=== PATIENT | male | born 1965 | race Caucasian/White ===

== ENCOUNTER 2019-05-21 19:22 | Emergency (ER) | payer OTHER ==
[~2019-05-21] VITALS: Ht 172.7 cm; Wt 81.7 kg
[2019-05-21 20:12] LABS: ABSOLUTE BASOPHILS 0.1 thou/uL (0.0-0.2); ABSOLUTE EOSINOPHILS 0.2 thou/uL (0.0-0.7); ABSOLUTE LYMPHOCYTES 2.3 thou/uL (0.8-5.3); ABSOLUTE MONOCYTES 0.7 thou/uL (0.0-1.2); ABSOLUTE NEUTROPHILS 4.7 thou/uL (1.6-8.1); BASOPHILS 0.9 %; EOSINOPHILS 2.1 %; HEMATOCRIT 45.8 % (42.0-52.0); HEMOGLOBIN 15.7 gm/dL (14.0-18.0); LYMPHOCYTES 29.2 %; MCH 31.5 pg (26.0-34.0); MCHC 34.3 g/dL (28.0-37.0); MCV 91.8 fL (80.0-100.0); MONOCYTES 8.6 %; NUCLEATED RBCS 0 /100WBC; PLATELET COUNT* 223 thou/uL (150-400); POLYS 59.2 %; RBC 4.98 mil/uL (4.50-6.00); RDW-CV 13.6 % (10.5-14.5); WBC 7.9 thou/uL (4.0-11.0)
[2019-05-21 20:19] LABS: CALCIUM 9.7 mg/dL (8.5-10.1); CREATININE 1.4 mg/dL (0.6-1.3); POTASSIUM 3.6 mmol/L (3.5-5.1)
[2019-05-21 20:30] LABS: ALBUMIN 4.1 g/dL (3.4-5.0); TOTAL BILIRUBIN 0.4 mg/dL (<0.1-1.0); TOTAL PROTEIN 8.2 g/dL (6.4-8.2)
[2019-05-21] MEDS ORDERED: LYRICA 50 MG50 MG PO (21:13)
[2019-05-21 22:36] VITALS: BP 127/93
[2019-05-21 22:49] LABS: URINE BILIRUBIN NEGATIVE (Negative); URINE BLOOD TRACE (Negative); URINE CLARITY CLEAR; URINE COLOR YELLOW; URINE GLUCOSE-RANDOM NEGATIVE (Negative); URINE KETONES NEGATIVE (Negative); URINE LEUKOCYTES-REFLEX NEGATIVE (Negative); URINE NITRITE-REFLEX NEGATIVE (Negative); URINE PROTEIN NEGATIVE (Negative); URINE SPECIFIC GRAVITY >= 1.030 (1.005-1.030); URINE UROBILINOGEN 0.2 E.U./dl (0.2-1.0)
--- NOTE | 2019-05-22 14:06 | EKG ---
[place] [address] ELECTROCARDIOGRAM REPORT Name: JAMESON RODRIGUEZ [id number] Admission: 05/21/19 Attend Phys: Discharge: 05/21/19 Date of : 65 Report #: [id number] THIS REPORT FOR: //name// [facility] ED Test Date: 2019-05-21 Test Time: 19:27:50 Pat Name: JAMESON RODRIGUEZ Department: Room: Gender: M Healthcare Marketer: [place] : 1965 Requested By: Lori Sharma Order Number: [id number] Reading MD: Kyaw Patterson Measurements Intervals [place] Rate: 96 P: 55 GA: 126 QRS: -59 QRSD: 157 T: 8 QT: 396 QTc: 501 Interpretive Statements Sinus rhythm RBBB and LAFB No previous ECG available for comparison Electronically Signed On 05-22-2019 14:06:25 LOSS PREVENTION SPECIALIST by Kyaw Patterson [email or web address] <ELECTRONICALLY SIGNED> By: Kyaw Patterson MD, [facility] 05/22/19 1406 1927 26 Kyaw Patterson MD, FACC /EPI
== END 2019-05-21 22:37 | disposition home or self-care (01) ==
LOC: M.ERS 19:22
PROVIDERS: Emergency Medicine
DX: R07.89 Other chest pain (principal); I10 Essential (primary) hypertension; F32.9 Major depressive disorder, single episode, unspecified; F41.9 Anxiety disorder, unspecified; Z91.018 Allergy to other foods; Z91.048 Other nonmedicinal substance allergy status

== ENCOUNTER 2019-05-24 00:09 | Emergency (ER) | payer OTHER ==
[~2019-05-24] VITALS: Ht 172.7 cm; Wt 81.7 kg
[~2019-05-24 00:09] MED LIST: LYRICA 50 MG50 MG PO
[2019-05-24 00:40] LABS: ABSOLUTE EOSINOPHILS 0.1 thou/uL (0.0-0.7); ABSOLUTE LYMPHOCYTES 2.6 thou/uL (0.8-5.3); ABSOLUTE MONOCYTES 0.7 thou/uL (0.0-1.2); ABSOLUTE NEUTROPHILS 3.3 thou/uL (1.6-8.1); BASOPHILS 0.6 %; EOSINOPHILS 2.1 %; HEMATOCRIT 42.9 % (42.0-52.0); HEMOGLOBIN 15.1 gm/dL (14.0-18.0); LYMPHOCYTES 38.7 %; MCHC 35.2 g/dL (28.0-37.0); MCV 91.1 fL (80.0-100.0); MONOCYTES 9.6 %; MPV 10.2 fl. (7.2-11.1); NUCLEATED RBCS 0 /100WBC; PLATELET COUNT* 188 thou/uL (150-400); RDW-CV 13.6 % (10.5-14.5); WBC 6.8 thou/uL (4.0-11.0)
[2019-05-24 00:46] LABS: CALCIUM 9.3 mg/dL (8.5-10.1); CREATININE 1.3 mg/dL (0.6-1.3); POTASSIUM 3.4 mmol/L (3.5-5.1)
[2019-05-24 00:54] LABS: PROTIME 10.5 Seconds (9.20-11.50)
[2019-05-24 01:01] LABS: TOTAL BILIRUBIN 0.5 mg/dL (<0.1-1.0); TOTAL PROTEIN 7.8 g/dL (6.4-8.2)
[2019-05-24 03:40] VITALS: BP 128/92
--- NOTE | 2019-05-25 12:49 | EKG ---
[place] [address] ELECTROCARDIOGRAM REPORT Name: JAMESON RODRIGUEZ [facility] [id number] Admission: 05/24/19 Attend Phys: Discharge: 05/24/19 Date of : 65 Report #: [id number] THIS REPORT FOR: //name// [facility] ED Test Date: 2019-05-24 Test Time: 00:17:06 Pat Name: JAMESON RODRIGUEZ Department: Room: Gender: M Software Sales Manager: : 1965 Requested By: Lori Sharma Order Number: [id number] MD: Kyaw Patterson Measurements Intervals [place] Rate: 94 P: 44 CT: 133 QRS: -25 QRSD: 152 T: 30 QT: 393 QTc: 492 Interpretive Statements Sinus rhythm Right bundle branch block Compared to ECG 05/21/2019 19:27:50 no change Electronically Signed On 05-25-2019 12:49:23 DONOR SERVICES MANAGER by Kyaw Patterson [email or web address] <ELECTRONICALLY SIGNED> By: Kyaw Patterson MD, [facility] 05/25/19 1249 0017 0017 Kyaw Patterson MD, FACC /EPI
== END 2019-05-24 03:40 | disposition home or self-care (01) ==
LOC: M.ERS 00:09
PROVIDERS: Emergency Medicine
DX: R07.89 Other chest pain (principal); I10 Essential (primary) hypertension; F41.9 Anxiety disorder, unspecified; F32.9 Major depressive disorder, single episode, unspecified; Z88.8 Allergy status to other drugs, medicaments and biological substances; Z91.018 Allergy to other foods

== ENCOUNTER 2019-05-29 17:15 | Emergency (ER) | payer OTHER ==
[~2019-05-29] VITALS: Ht 172.7 cm; Wt 81.7 kg
[2019-05-29] MEDS ORDERED: PROTONIX40 M4 PO (17:28)
[2019-05-29] MEDS ORDERED: INDAPAMIDE2.5 MG PO (17:28)
[2019-05-29] MEDS ORDERED: LIPITOR 20 MG T20 M1 PO (17:28)
[2019-05-29] MEDS ORDERED: DICYCLOMINE HCL20 MG PO (17:28)
[2019-05-29] MEDS ORDERED: BUPROPION XL150 MG PO (17:29)
[2019-05-29] MEDS ORDERED: K-DUR 20 MEQ T20 MEQ PO (17:29)
[2019-05-29] MEDS ORDERED: CELECOXIB100 MG PO (17:29)
[2019-05-29] MEDS ORDERED: NORCO 5-325 TA1 EAC1 PO (19:43)
[2019-05-29 19:47] VITALS: BP 129/84
--- NOTE | 2019-05-30 13:18 | EKG ---
[place] [address] ELECTROCARDIOGRAM REPORT Name: JAMESON RODRIGUEZ Room: [facility]#: [id number] Admission: 05/29/19 Attend Phys: Discharge: 05/29/19 Date of : 65 Report #: [id number] THIS REPORT FOR: //name// [facility] ED Test Date: 2019-05-29 Test Time: 17:22:48 Pat Name: JAMESON RODRIGUEZ Department: Room: Gender: M Cannon Crewmember: : 1965 Requested By: Aleksandra Martin Order Number: [id number] MD: Kyaw Patterson Measurements Intervals [place] Rate: 90 P: 41 NM: 142 QRS: 79 QRSD: 149 T: 33 QT: 398 QTc: 487 Interpretive Statements Sinus rhythm Right bundle branch block Baseline wander in lead(s) V1,V2 Compared to ECG 05/24/2019 00:17:06 No significant changes Electronically Signed On 05-30-2019 13:17:42 UNIVERSITY EXTENSION SPECIALIST by Kyaw Patterson [email or web address] <ELECTRONICALLY SIGNED> By: Kyaw Patterson MD, [facility] 05/30/19 1317 21 21 Kyaw Patterson MD, FAC /EPI
== END 2019-05-29 19:47 | disposition home or self-care (01) ==
LOC: M.ERS 17:15
DX: G89.29 Other chronic pain (principal); R07.9 Chest pain, unspecified; I10 Essential (primary) hypertension; F41.9 Anxiety disorder, unspecified; F32.9 Major depressive disorder, single episode, unspecified; F43.10 Post-traumatic stress disorder, unspecified; Z88.8 Allergy status to other drugs, medicaments and biological substances; Z91.018 Allergy to other foods; Z79.899 Other long term (current) drug therapy

== ENCOUNTER 2019-09-04 00:02 | Emergency (ER) | payer OTHER ==
[~2019-09-04] VITALS: Ht 172.7 cm; Wt 81.7 kg
[~2019-09-04 00:02] MED LIST changes: +BUPROPION XL150 MG PO; +CELECOXIB100 MG PO; +DICYCLOMINE HCL20 MG PO; +INDAPAMIDE2.5 MG PO; +K-DUR 20 MEQ T20 MEQ PO; +LIPITOR 20 MG T20 M1 PO; +NORCO 5-325 TA1 EAC1 PO; +PROTONIX40 M4 PO
[2019-09-04] MEDS ORDERED: NITROSTAT0.4 M1 SUBLING (00:16)
[2019-09-04 00:42] LABS: MCHC 34.9 g/dL (28.0-37.0); RDW-CV 14.4 % (10.5-14.5)
[2019-09-04 00:44] LABS: ABSOLUTE BASOPHILS 0.1 thou/uL (0.0-0.2); ABSOLUTE EOSINOPHILS 0.2 thou/uL (0.0-0.7); ABSOLUTE MONOCYTES 0.9 thou/uL (0.0-1.2); BASOPHILS 0.6 %; EOSINOPHILS 2.6 %; LYMPHOCYTES 32.3 %; MCH 31.8 pg (26.0-34.0); MONOCYTES 10.1 %; MPV 10.7 fl. (7.2-11.1); NUCLEATED RBCS 0 /100WBC; PLATELET COUNT* 180 thou/uL (150-400); POLYS 54.4 %; RBC 5.05 mil/uL (4.50-6.00); WBC 9.2 thou/uL (4.0-11.0)
[2019-09-04 00:46] LABS: CALCIUM 9.6 mg/dL (8.5-10.1); CREATININE 1.3 mg/dL (0.6-1.3); POTASSIUM 3.2 mmol/L (3.5-5.1)
[2019-09-04 01:07] LABS: URINE BILIRUBIN NEGATIVE (Negative); URINE BLOOD TRACE (Negative); URINE CLARITY CLEAR; URINE COLOR YELLOW; URINE GLUCOSE-RANDOM NEGATIVE (Negative); URINE KETONES NEGATIVE (Negative); URINE LEUKOCYTES-REFLEX NEGATIVE (Negative); URINE NITRITE-REFLEX NEGATIVE (Negative); URINE PROTEIN NEGATIVE (Negative); URINE SPECIFIC GRAVITY >= 1.030 (1.005-1.030); URINE UROBILINOGEN 0.2 E.U./dl (0.2-1.0)
[2019-09-04] MEDS ORDERED: HYDROCODON-ACE1 EAC8 PO (03:09)
[2019-09-04] MEDS ORDERED: FLOMAX0.4 MG PO (03:09)
[2019-09-04] MEDS ORDERED: ZOFRAN ODT4 MG PO (03:09)
[2019-09-04 03:40] VITALS: BP 147/89
== END 2019-09-04 03:40 | disposition home or self-care (01) ==
LOC: M.ERS 00:02
PROVIDERS: Emergency Medicine
DX: R10.31 Right lower quadrant pain (principal); R10.33 Periumbilical pain; I10 Essential (primary) hypertension; Z88.8 Allergy status to other drugs, medicaments and biological substances; Z91.018 Allergy to other foods

== ENCOUNTER 2019-09-07 17:29 | Emergency (ER) | payer OTHER ==
[~2019-09-07] VITALS: Ht 172.7 cm; Wt 81.6 kg
[~2019-09-07 17:29] MED LIST changes: +FLOMAX0.4 MG PO; +HYDROCODON-ACE1 EAC8 PO; +NITROSTAT0.4 M1 SUBLING; +ZOFRAN ODT4 MG PO
[2019-09-07 18:15] LABS: ABSOLUTE BASOPHILS 0.1 thou/uL (0.0-0.2); ABSOLUTE EOSINOPHILS 0.1 thou/uL (0.0-0.7); ABSOLUTE LYMPHOCYTES 1.9 thou/uL (0.8-5.3); ABSOLUTE MONOCYTES 0.7 thou/uL (0.0-1.2); ABSOLUTE NEUTROPHILS 6.8 thou/uL (1.6-8.1); BASOPHILS 0.6 %; EOSINOPHILS 0.7 %; HEMATOCRIT 45.1 % (42.0-52.0); HEMOGLOBIN 15.5 gm/dL (14.0-18.0); LYMPHOCYTES 19.8 %; MCH 31.4 pg (26.0-34.0); MCHC 34.4 g/dL (28.0-37.0); MCV 91.5 fL (80.0-100.0); MONOCYTES 7.5 %; MPV 11.2 fl. (7.2-11.1); NUCLEATED RBCS 0 /100WBC; PLATELET COUNT* 197 thou/uL (150-400); POLYS 71.4 %; RBC 4.94 mil/uL (4.50-6.00); RDW-CV 14.3 % (10.5-14.5); WBC 9.5 thou/uL (4.0-11.0)
[2019-09-07 18:23] LABS: CALCIUM 9.8 mg/dL (8.5-10.1); CREATININE 1.3 mg/dL (0.6-1.3); POTASSIUM 3.6 mmol/L (3.5-5.1)
[2019-09-07 18:28] LABS: ALBUMIN 4.3 g/dL (3.4-5.0); TOTAL PROTEIN 8.7 g/dL (6.4-8.2)
[2019-09-07 18:53] LABS: URINE BLOOD NEGATIVE (Negative); URINE CLARITY CLEAR; URINE COLOR YELLOW; URINE GLUCOSE-RANDOM NEGATIVE (Negative); URINE KETONES NEGATIVE (Negative); URINE LEUKOCYTES-REFLEX NEGATIVE (Negative); URINE NITRITE-REFLEX NEGATIVE (Negative); URINE PROTEIN TRACE (Negative); URINE SPECIFIC GRAVITY 1.025 (1.005-1.030); URINE UROBILINOGEN 0.2 E.U./dl (0.2-1.0)
[2019-09-07 18:58] LABS: ICTOTEST (BILI CONFIRMATORY) Negative (Negative); URINE BILIRUBIN 1+ (Negative)
[2019-09-07] MEDS ORDERED: NORCO 5-325 TA1 EAC1 PO (20:25)
[2019-09-07] MEDS ORDERED: ONDANSETRON HCL4 M2 PO (20:25)
[2019-09-07] MEDS ORDERED: PHENERGAN 25 MG25 M1 PO (20:32)
[2019-09-07 20:35] VITALS: BP 124/90
--- NOTE | 2019-09-08 09:29 | EKG ---
[place] [address] ELECTROCARDIOGRAM REPORT Name: JAMESON RODRIGUEZ Room: [facility]#: [id number] Admission: 09/07/19 Attend Phys: Discharge: 09/07/19 Date of : 65 Date of Service: 09/07/191819 Report #: [id number] THIS REPORT FOR: //name// [facility] ED Test Date: 2019-09-07 Test Time: 18:20:25 Pat Name: JAMESON RODRIGUEZ Department: Room: Gender: Exerciser: : 1965 Requested By: Aleksandra Martin Order Number: [id number] MD: Kyaw Patterson Measurements Intervals [place] Rate: 95 P: 7 HI: 145 QRS: -24 QRSD: 148 T: -1 QT: 411 QTc: 517 Interpretive Statements Sinus rhythm Probable left atrial enlargement Right bundle branch block Compared to ECG 05/29/2019 17:22:48 No significant changes Electronically Signed On 09-08-2019 9:27:49 CDT by Kyaw Patterson [email or web address] <ELECTRONICALLY SIGNED> By: Kyaw Patterson MD, [facility] 09/08/19 0927 1820 1820 Kyaw Patterson MD, [facility] /EPI
== END 2019-09-07 20:36 | disposition home or self-care (01) ==
LOC: M.ERS 17:29
PROVIDERS: Nurse Practitioner Family
DX: K62.5 Hemorrhage of anus and rectum (principal); R10.84 Generalized abdominal pain; R11.2 Nausea with vomiting, unspecified; I10 Essential (primary) hypertension; F41.9 Anxiety disorder, unspecified; F32.9 Major depressive disorder, single episode, unspecified; Z91.048 Other nonmedicinal substance allergy status; Z91.018 Allergy to other foods

== ENCOUNTER 2019-09-14 22:45 | Inpatient (IN) | payer OTHER ==
[~2019-09-14] VITALS: Ht 172.7 cm; Wt 81.2 kg
--- NOTE | ~2019-09-14 | PROC ---
[facility] [address] [place] [address] PROCEDURE REPORT Name: JAMESON RODRIGUEZ Room: [facility]- ADM IN M.R.#: [id number] Admission: 09/15/19 Attend Phys: Keyonna Reynolds MD Discharge: Date of : 65 Report #: [id number] THIS REPORT FOR: //name// cc: Elmer Thao MD, Bruce D. MD ~ THIS REPORT FOR: //name// For GI report, please see the Provation report in Perceptive 7 content. By: [facility]chez[facility] Records Staff ANDRÉS /ASHOK
[~2019-09-14 22:45] MED LIST changes: +ONDANSETRON HCL4 M2 PO; +PHENERGAN 25 MG25 M1 PO
[2019-09-14 22:48] VITALS: BP 134/100
[2019-09-14] MEDS ORDERED: ZANAFLEX PO (22:53)
[2019-09-14 23:43] LABS: ABSOLUTE BASOPHILS 0.1 thou/uL (0.0-0.2); ABSOLUTE EOSINOPHILS 0.1 thou/uL (0.0-0.7); ABSOLUTE LYMPHOCYTES 2.6 thou/uL (0.8-5.3); ABSOLUTE MONOCYTES 0.8 thou/uL (0.0-1.2); ABSOLUTE NEUTROPHILS 4.5 thou/uL (1.6-8.1); BASOPHILS 0.6 %; EOSINOPHILS 1.5 %; HEMATOCRIT 43.5 % (42.0-52.0); HEMOGLOBIN 14.9 gm/dL (14.0-18.0); LYMPHOCYTES 31.8 %; MCH 31.2 pg (26.0-34.0); MCHC 34.2 g/dL (28.0-37.0); MCV 91.2 fL (80.0-100.0); MONOCYTES 10.2 %; MPV 10.5 fl. (7.2-11.1); NUCLEATED RBCS 0 /100WBC; PLATELET COUNT* 228 thou/uL (150-400); POLYS 55.9 %; RBC 4.77 mil/uL (4.50-6.00); RDW-CV 14.4 % (10.5-14.5); WBC 8.1 thou/uL (4.0-11.0)
[2019-09-15 00:03] LABS: CREATININE 1.2 mg/dL (0.6-1.3)
[2019-09-15 00:04] LABS: POTASSIUM 2.8 mmol/L (3.5-5.1)
[2019-09-15 00:08] LABS: ALBUMIN 4.1 g/dL (3.4-5.0); TOTAL BILIRUBIN 0.4 mg/dL (<0.1-1.0); TOTAL PROTEIN 7.8 g/dL (6.4-8.2)
[2019-09-15 00:58] LABS: URINE BILIRUBIN NEGATIVE (Negative); URINE BLOOD TRACE (Negative); URINE CLARITY CLEAR; URINE COLOR YELLOW; URINE GLUCOSE-RANDOM NEGATIVE (Negative); URINE KETONES NEGATIVE (Negative); URINE LEUKOCYTES-REFLEX NEGATIVE (Negative); URINE NITRITE-REFLEX NEGATIVE (Negative); URINE PROTEIN NEGATIVE (Negative); URINE UROBILINOGEN 0.2 E.U./dl (0.2-1.0)
[2019-09-15 03:45] VITALS: BP 116/82
[2019-09-15 04:53] VITALS: BP 127/87
[2019-09-15 08:00] VITALS: BP 101/70
[2019-09-15 10:38] LABS: CALCIUM 8.3 mg/dL (8.5-10.1); CREATININE 1.1 mg/dL (0.6-1.3); MAGNESIUM 1.6 mg/dL (1.8-2.4); PHOSPHORUS* 2.6 mg/dL (2.5-4.9); POTASSIUM 3.4 mmol/L (3.5-5.1)
[2019-09-15 13:03] LABS: AMP/METHAMP Negative (Negative); BARBITURATES Negative (Negative); BENZODIAZEPINES Negative (Negative); COCAINE Negative (Negative); METHADONE Negative (Negative); OPIATES POSITIVE (Negative); PCP Negative (Negative); THC Negative (Negative)
[2019-09-15 20:25] VITALS: BP 126/87
[2019-09-16 09:29] LABS: ABSOLUTE EOSINOPHILS 0.2 thou/uL (0.0-0.7); ABSOLUTE LYMPHOCYTES 2.6 thou/uL (0.8-5.3); ABSOLUTE MONOCYTES 0.6 thou/uL (0.0-1.2); ABSOLUTE NEUTROPHILS 2.7 thou/uL (1.6-8.1); BASOPHILS 0.8 %; EOSINOPHILS 2.7 %; HEMATOCRIT 38.1 % (42.0-52.0); HEMOGLOBIN 13.1 gm/dL (14.0-18.0); LYMPHOCYTES 42.1 %; MCH 31.2 pg (26.0-34.0); MCHC 34.3 g/dL (28.0-37.0); MONOCYTES 9.4 %; MPV 9.6 fl. (7.2-11.1); NUCLEATED RBCS 0 /100WBC; PLATELET COUNT* 205 thou/uL (150-400); RBC 4.19 mil/uL (4.50-6.00); RDW-CV 14.3 % (10.5-14.5); WBC 6.1 thou/uL (4.0-11.0)
[2019-09-16 09:38] LABS: CALCIUM 8.4 mg/dL (8.5-10.1); CREATININE 1.2 mg/dL (0.6-1.3); MAGNESIUM 1.8 mg/dL (1.8-2.4); PHOSPHORUS* 2.7 mg/dL (2.5-4.9); POTASSIUM 3.7 mmol/L (3.5-5.1)
[2019-09-16 09:55] VITALS: BP 115/77
[2019-09-16 12:11] VITALS: BP 114/80
[2019-09-16 20:00] VITALS: BP 136/91
[2019-09-16 23:54] VITALS: BP 142/99
[2019-09-17 05:05] LABS: ABSOLUTE EOSINOPHILS 0.2 thou/uL (0.0-0.7); ABSOLUTE LYMPHOCYTES 2.3 thou/uL (0.8-5.3); ABSOLUTE MONOCYTES 0.6 thou/uL (0.0-1.2); ABSOLUTE NEUTROPHILS 3.5 thou/uL (1.6-8.1); BASOPHILS 0.7 %; EOSINOPHILS 2.8 %; HEMATOCRIT 38.9 % (42.0-52.0); HEMOGLOBIN 13.3 gm/dL (14.0-18.0); LYMPHOCYTES 35.1 %; MCH 31.5 pg (26.0-34.0); MCHC 34.2 g/dL (28.0-37.0); MONOCYTES 8.3 %; MPV 10.4 fl. (7.2-11.1); NUCLEATED RBCS 0 /100WBC; PLATELET COUNT* 202 thou/uL (150-400); POLYS 53.1 %; RBC 4.23 mil/uL (4.50-6.00); RDW-CV 14.4 % (10.5-14.5); WBC 6.6 thou/uL (4.0-11.0)
[2019-09-17 05:20] LABS: ALBUMIN 3.6 g/dL (3.4-5.0); CALCIUM 8.1 mg/dL (8.5-10.1); CREATININE 1.3 mg/dL (0.6-1.3); POTASSIUM 3.4 mmol/L (3.5-5.1); TOTAL BILIRUBIN 0.4 mg/dL (<0.1-1.0); TOTAL PROTEIN 6.9 g/dL (6.4-8.2)
[2019-09-17 06:16] LABS: ESR (SEDRATE) 3 mm/hr (0-20)
[2019-09-17 09:06] VITALS: BP 128/95
[2019-09-17 16:00] VITALS: BP 142/100
[2019-09-17 20:00] VITALS: BP 135/101
[2019-09-18] VITALS: BP 110/84
[2019-09-18 03:03] VITALS: BP 110/84
[2019-09-18 04:55] LABS: HEMATOCRIT 39.3 % (42.0-52.0); HEMOGLOBIN 13.4 gm/dL (14.0-18.0); MCH 31.3 pg (26.0-34.0); MCHC 34.1 g/dL (28.0-37.0); MCV 91.8 fL (80.0-100.0); MPV 10.6 fl. (7.2-11.1); RBC 4.28 mil/uL (4.50-6.00); RDW-CV 14.2 % (10.5-14.5); WBC 7.4 thou/uL (4.0-11.0)
[2019-09-18 05:15] LABS: ALBUMIN 3.8 g/dL (3.4-5.0); CALCIUM 8.4 mg/dL (8.5-10.1); CREATININE 1.3 mg/dL (0.6-1.3); PHOSPHORUS* 3.3 mg/dL (2.5-4.9); POTASSIUM 3.9 mmol/L (3.5-5.1)
[2019-09-18 08:00] VITALS: BP 100/82
[2019-09-18 16:14] VITALS: BP 119/78
[2019-09-18 20:47] VITALS: BP 94/72
[2019-09-19 07:40] VITALS: BP 102/63
[2019-09-19 08:20] LABS: ABSOLUTE BASOPHILS 0.1 thou/uL (0.0-0.2); ABSOLUTE EOSINOPHILS 0.2 thou/uL (0.0-0.7); ABSOLUTE MONOCYTES 0.9 thou/uL (0.0-1.2); ABSOLUTE NEUTROPHILS 12.4 thou/uL (1.6-8.1); BASOPHILS 0.4 %; EOSINOPHILS 1.1 %; HEMATOCRIT 36.9 % (42.0-52.0); HEMOGLOBIN 12.8 gm/dL (14.0-18.0); LYMPHOCYTES 12.6 %; MCH 31.2 pg (26.0-34.0); MCHC 34.6 g/dL (28.0-37.0); MCV 90.2 fL (80.0-100.0); MONOCYTES 5.7 %; MPV 9.7 fl. (7.2-11.1); NUCLEATED RBCS 0 /100WBC; PLATELET COUNT* 192 thou/uL (150-400); POLYS 80.2 %; RBC 4.09 mil/uL (4.50-6.00); RDW-CV 14.6 % (10.5-14.5); WBC 15.5 thou/uL (4.0-11.0)
[2019-09-19 08:29] LABS: ALBUMIN 3.3 g/dL (3.4-5.0); CALCIUM 8.4 mg/dL (8.5-10.1); CREATININE 1.5 mg/dL (0.6-1.3); TOTAL BILIRUBIN 1.2 mg/dL (<0.1-1.0); TOTAL PROTEIN 6.5 g/dL (6.4-8.2)
[2019-09-19 11:56] VITALS: BP 102/63
--- NOTE | 2019-09-20 12:07 | PATH ---
[address] [address] PATHOLOGY RPT PROCEDURE Name: JAMESON RIVAS Room: [address] IN M.R.#: [id number] Admission: 09/15/19 Date of : 65 Discharge: 09/19/19 Report #: [id number] Path Case #: [id number] [facility] Accession Number: [id number] . 01 Material submitted: . esophagus - ESOPHAGEAL BIOPSY 38CM VARES . 01 Clinician provided ICD-10: y . 01 Clinical history: . Chronic reflux and RLQ pain . 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 (SONJA:faisal; 09/20/19) [facility] 09/20/2019 1157 Local . 02 Electronically signed: . Cristobal Martin MD, Pathologist NPI- [id number] . 01 Gross description: . The specimen is received in formalin, labeled "Jameson Rivas esophageal BX 30 cm vargregorio" and consists of 3 fragments of pink-jean tissue measuring between 0.3 x 0.2 cm and 0.3 x 0.3 cm which are entirely submitted in A1. (SDY; 09/19/2019) [facility] 09/19/2019 1258 Local . 02 Pathologist provided ICD-10: K20.9 . 02 CPT . 428935 Specimen Comment: A courtesy copy of this report has been sent to [phone], [phone] Specimen Comment: [phone], Specimen Comment: Report sent to ,DR SHI / DR DELANEY Performed at: [address], [place] [id number] MD Luis Lu MD Phone: [phone] Performed at: [facility] [address] [place], [place] [id number] [place] [address] PATHOLOGY RPT PROCEDURE Name: JAMESON RIVAS Room: [facility] IN M.R.#: [id number] Admission: 09/15/19 Date of : 65 Discharge: 09/19/19 Report #: [id number] Path Case #: [id number] MD Cristobal Martin MD Phone: [phone]
--- NOTE | 2019-09-21 16:44 | CON ---
[facility] [address] [place] [address] CONSULTATION Name: JAMESON RODRIGUEZ Room: [address] IN M.R.#: [id number] Admission: 09/15/19 Attend Phys: Keyonna Reynolds MD Discharge: 09/19/19 Date of : 65 Report #: [id number] THIS REPORT FOR: //name// cc: Elmer Thao MD, Bruce D. MD ~ THIS REPORT FOR: //name// CC: ELMER Reynolds MD [facility] DATE OF SERVICE: 09/16/2019 GASTROENTEROLOGY CONSULTATION REFERRING PHYSICIAN: Keyonna Reynolds MD REASON FOR CONSULTATION: Abdominal pain. IMPRESSION: 1. Persistent right lower quadrant pain of uncertain etiology. 2. Melena. 3. Mild anemia secondary to possible gastrointestinal blood loss. 4. Chronic acid reflux. 5. Chronic nonsteroidal use. 6. Family history of colon polyps in his sister and possibly colon cancer in his mother, though the patient is not sure if she had colon cancer or not. RECOMMENDATIONS: We will proceed with both upper and lower endoscopy on Wednesday morning, 09/18/2019. I have discussed the plans with the patient as well and he is agreeable to proceed. HISTORY OF PRESENT ILLNESS: The patient is a pleasant 53-year-old white male who has been to the Emergency Room 3 times in the last month because of persistent lower abdominal pain. The pain is mostly in the right lower quadrant without any rhyme or reason. He does have problem with chronic acid reflux, but does not notice any postprandial worsening of the same. He denies any big changes in his bowels or bowel frequency. He has had some black stools, tarry stools suggestive of GI blood loss. He does take nonsteroidals on a fairly regular basis. He never had any previous issues related to his upper or lower GI tract in the past. He is admitted to the hospital after being seen twice in the Emergency Room for further evaluation and treatment. ALLERGIES: CODEINE, [place] [address] CONSULTATION Name: MICHAELJAMESON MORELIA Room: [address] IN M.R.#: [id number] Admission: 09/15/19 Attend Phys: Keyonna Reynolds MD Discharge: 09/19/19 Date of : 65 Report #: [id number] MEDICATIONS: At this time include hydrocodone, promethazine, Lyrica, Zofran, tamsulosin, dicyclomine, atorvastatin. He has been on pantoprazole 40 mg twice daily, indapamide, he does take Celebrex twice daily, bupropion, potassium, and Zanaflex. PAST MEDICAL AND SURGICAL HISTORY: Remarkable for underlying hypertension. He has had previous rotator cuff surgery in the past, LASIK surgery, anxiety, depression, posttraumatic stress disorder. He is a . SOCIAL HISTORY: The patient does not smoke or drink. Denies any marijuana use. FAMILY HISTORY: As above. PHYSICAL EXAMINATION: GENERAL: A pleasant 53-year-old gentleman who is awake and alert. CARDIOPULMONARY: Revealed a regular rate and rhythm. LUNGS: Clear. ABDOMEN: Soft, mildly tender in lower quadrants. No rebound or guarding noted. LABORATORY DATA: From admission revealed a white count of 8.1, hemoglobin 14.9, platelet count 228,000, MCV is 91.2 and RDW is 14.4. Sodium is 139, potassium 2.8, chloride 102, bicarbonate is 25. His BUN is 15, creatinine 1.2 for GFR of 63. Total bilirubin 0.4, alkaline phosphatase 64, AST 17, ALT 31, albumin is 4.1. CT scan of the abdomen and pelvis performed on 09/14 revealed diverticular disease within the descending and sigmoid colon and changes of a right inguinal hernia repair, mild fatty infiltration of the liver, but nothing else. DISCUSSION: At the present time, this patient has been to the Emergency Room 3 times in the last month with persistent pain in the right lower quadrant. We will proceed with upper and lower endoscopy in 2 days' time and make further recommendations thereafter. I have discussed the plans with the patient as well and he is agreeable to the same. <ELECTRONICALLY SIGNED> By: Rod Nuñez DO 09/21/19 1644 0803 0836Rod Nuñez DO /nt
== END 2019-09-19 13:50 | disposition home or self-care (01) | DRG 394 ==
LOC: M.ERS 22:45 → M.2W 09-15 02:30 → M.TBA-ER 09-15 02:30 → M.2W 09-15 03:11
PROVIDERS: Family Medicine; Internal Medicine Gastroenterology; Personal Emergency Response Attendant; Surgery; ADMIT Internal Medicine
PROC: 0DB38ZX Excision of Lower Esophagus, Via Natural or Artificial Opening Endoscopic, Diagnostic (ICD-10-PCS; principal; 2019-09-18)
PROC: 0DJD8ZZ Inspection of Lower Intestinal Tract, Via Natural or Artificial Opening Endoscopic (ICD-10-PCS; principal; 2019-09-18)
DX: K91.89 Other postprocedural complications and disorders of digestive system (principal); K92.1 Melena; K57.90 Diverticulosis of intestine, part unspecified, without perforation or abscess without bleeding; K58.9 Irritable bowel syndrome, unspecified; E78.5 Hyperlipidemia, unspecified; K82.8 Other specified diseases of gallbladder; I10 Essential (primary) hypertension; N40.0 Benign prostatic hyperplasia without lower urinary tract symptoms; K22.70 Barrett's esophagus without dysplasia; K21.9 Gastro-esophageal reflux disease without esophagitis; K44.9 Diaphragmatic hernia without obstruction or gangrene; F43.10 Post-traumatic stress disorder, unspecified; F41.9 Anxiety disorder, unspecified; K22.8 Other specified diseases of esophagus; K64.4 Residual hemorrhoidal skin tags; E87.6 Hypokalemia; D50.0 Iron deficiency anemia secondary to blood loss (chronic); Y83.8 Other surgical procedures as the cause of abnormal reaction of the patient, or of later complication, without mention of misadventure at the time of the procedure; F17.210 Nicotine dependence, cigarettes, uncomplicated; F32.9 Major depressive disorder, single episode, unspecified; Z91.018 Allergy to other foods; Z91.09 Other allergy status, other than to drugs and biological substances; Z79.899 Other long term (current) drug therapy; Y92.89 Other specified places as the place of occurrence of the external cause

== ENCOUNTER 2019-09-29 22:07 | Emergency (ER) | payer OTHER ==
[~2019-09-29] VITALS: Ht 172.7 cm; Wt 81.7 kg
[~2019-09-29 22:07] MED LIST changes: +ZANAFLEX PO
[2019-09-29] MEDS ORDERED: NAPROSYN500 MG PO (22:22)
[2019-09-29] MEDS ORDERED: HYDROCODON-ACE1 EAC7 PO (22:42)
[2019-09-29] MEDS ORDERED: MEDROLDOSEPACK PO (22:42)
[2019-09-29 22:55] VITALS: BP 130/97
== END 2019-09-29 22:52 | disposition home or self-care (01) ==
LOC: M.ERS 22:07
DX: M70.31 Other bursitis of elbow, right elbow (principal); I10 Essential (primary) hypertension; F32.9 Major depressive disorder, single episode, unspecified; F41.9 Anxiety disorder, unspecified; Z91.048 Other nonmedicinal substance allergy status; Z91.018 Allergy to other foods

== ENCOUNTER 2019-10-21 19:16 | Emergency (ER) | payer OTHER ==
[~2019-10-21] VITALS: Ht 172.7 cm; Wt 81.2 kg
[~2019-10-21 19:16] MED LIST changes: +HYDROCODON-ACE1 EAC7 PO; +MEDROLDOSEPACK PO; +NAPROSYN500 MG PO
[2019-10-21 19:41] LABS: ABSOLUTE LYMPHOCYTES 1.5 thou/uL (0.8-5.3); ABSOLUTE MONOCYTES 0.5 thou/uL (0.0-1.2); ABSOLUTE NEUTROPHILS 7.2 thou/uL (1.6-8.1); BASOPHILS 0.3 %; EOSINOPHILS 0.2 %; HEMATOCRIT 42.9 % (42.0-52.0); HEMOGLOBIN 14.7 gm/dL (14.0-18.0); LYMPHOCYTES 16.2 %; MCH 31.2 pg (26.0-34.0); MCHC 34.2 g/dL (28.0-37.0); MCV 91.3 fL (80.0-100.0); MONOCYTES 5.9 %; MPV 10.3 fl. (7.2-11.1); NUCLEATED RBCS 0 /100WBC; PLATELET COUNT* 212 thou/uL (150-400); POLYS 77.4 %; RDW-CV 14.2 % (10.5-14.5); WBC 9.3 thou/uL (4.0-11.0)
[2019-10-21 19:49] LABS: ANION GAP 10 mmol/L (7-16); BUN 19 mg/dL (7-18); CHLORIDE 100 mmol/L (98-107); CO2 29 mmol/L (21-32); CREATININE 1.4 mg/dL (0.6-1.3); GLUCOSE 150 mg/dL (70-99); POTASSIUM 3.2 mmol/L (3.5-5.1); SODIUM 139 mmol/L (136-145)
[2019-10-21 19:52] LABS: APTT 23.6 Seconds (25.0-31.3)
[2019-10-21 20:00] LABS: ALKALINE PHOSPHATASE 74 U/L (46-116); LIPASE 142 U/L (73-393); MAGNESIUM 1.7 mg/dL (1.8-2.4); SGOT 16 U/L (15-37); SGPT 26 U/L (30-65); TOTAL BILIRUBIN 0.4 mg/dL (<0.1-1.0); TOTAL PROTEIN 7.9 g/dL (6.4-8.2)
[2019-10-21 20:38] LABS: CK-MB MASS < 0.5 ng/mL (<0.5-3.6); NT-PRO BRAIN NAT PEPTIDE 35 pg/mL (<300)
[2019-10-21] MEDS ORDERED: NORCO 5-325 TA1 EAC1 PO (21:56)
[2019-10-21 22:21] VITALS: BP 140/98
--- NOTE | 2019-10-22 13:15 | EKG ---
[place] [address] ELECTROCARDIOGRAM REPORT Name: JAMESON RODRIGUEZ Room: [facility]#: [id number] Admission: 10/21/19 Attend Phys: Discharge: 10/21/19 Date of : 65 Date of Service: 10/21/191920 Report #: [id number] THIS REPORT FOR: //name// [facility] ED Test Date: 2019-10-21 Test Time: 19:21:40 Pat Name: JAMESON RODRIGUEZ Department: Room: Gender: Cosmetic Maker: [facility] : 1965 Requested By: Orville Erwin Order Number: [id number] MD: Kyaw Patterson Measurements Intervals [place] Rate: 92 P: 54 AK: 124 QRS: 46 QRSD: 150 T: 26 QT: 397 QTc: 492 Interpretive Statements Sinus rhythm Right bundle branch block Baseline wander in lead(s) V1 Compared to ECG 09/07/2019 18:20:25 No significant changes Electronically Signed On 10-22-2019 13:13:02 CDT by Kyaw Patterson [email or web address] <ELECTRONICALLY SIGNED> By: Kyaw Patterson MD, [facility] 10/22/19 1313 192 20 Kyaw Patterson MD, [facility] /EPI
== END 2019-10-21 22:21 | disposition home or self-care (01) ==
LOC: M.ERS 19:16
PROVIDERS: Family Medicine
DX: R07.89 Other chest pain (principal); K21.9 Gastro-esophageal reflux disease without esophagitis; I10 Essential (primary) hypertension; Z88.8 Allergy status to other drugs, medicaments and biological substances; Z91.018 Allergy to other foods

== ENCOUNTER 2019-11-14 15:29 | Emergency (ER) | payer OTHER ==
[~2019-11-14] VITALS: Ht 172.7 cm; Wt 79.7 kg
[2019-11-14 15:51] LABS: ABSOLUTE BASOPHILS 0.1 thou/uL (0.0-0.2); ABSOLUTE EOSINOPHILS 0.1 thou/uL (0.0-0.7); ABSOLUTE LYMPHOCYTES 2.2 thou/uL (0.8-5.3); ABSOLUTE MONOCYTES 0.9 thou/uL (0.0-1.2); ABSOLUTE NEUTROPHILS 5.3 thou/uL (1.6-8.1); BASOPHILS 1.4 %; EOSINOPHILS 1.2 %; HEMATOCRIT 41.4 % (42.0-52.0); HEMOGLOBIN 14.3 gm/dL (14.0-18.0); MCH 31.4 pg (26.0-34.0); MCHC 34.5 g/dL (28.0-37.0); MCV 91.1 fL (80.0-100.0); MONOCYTES 10.1 %; MPV 10.2 fl. (7.2-11.1); NUCLEATED RBCS 0 /100WBC; PLATELET COUNT* 246 thou/uL (150-400); POLYS 61.3 %; RBC 4.54 mil/uL (4.50-6.00); RDW-CV 15.3 % (10.5-14.5); WBC 8.6 thou/uL (4.0-11.0)
[2019-11-14 16:04] LABS: APTT 19.6 Seconds (25.0-31.3); PROTIME 10.1 Seconds (9.20-11.50)
[2019-11-14 16:12] LABS: ANION GAP 13 mmol/L (7-16); BUN 17 mg/dL (7-18); CALCIUM 9.3 mg/dL (8.5-10.1); CHLORIDE 101 mmol/L (98-107); CO2 24 mmol/L (21-32); CREATININE 1.4 mg/dL (0.6-1.3); GLUCOSE 105 mg/dL (70-99); POTASSIUM 3.6 mmol/L (3.5-5.1); SODIUM 138 mmol/L (136-145)
[2019-11-14 16:20] LABS: ALKALINE PHOSPHATASE 69 U/L (46-116); CK-MB MASS < 0.5 ng/mL (<0.5-3.6); LIPASE 261 U/L (73-393); MAGNESIUM 1.8 mg/dL (1.8-2.4); NT-PRO BRAIN NAT PEPTIDE 28 pg/mL (<300); SGOT 26 U/L (15-37); SGPT 28 U/L (30-65); TOTAL BILIRUBIN 0.7 mg/dL (<0.1-1.0); TOTAL PROTEIN 7.7 g/dL (6.4-8.2)
[2019-11-14 18:58] VITALS: BP 119/86
--- NOTE | 2019-11-15 09:06 | EKG ---
[place] [address] ELECTROCARDIOGRAM REPORT Name: JAMESON RODRIGUEZ Room: [facility] [id number] Admission: 11/14/19 Attend Phys: Discharge: 11/14/19 Date of : 65 Date of Service: 11/14/19 1533 Report #: [id number] THIS REPORT FOR: //name// [facility] ED Test Date: 2019-11-14 Test Time: 15:33:01 Pat Name: JAMESON RODRIGUEZ Department: Room: Gender: Him Director: Susana : 1965 Requested By: Javier Lozoya Order Number: [id number] MD: Kyaw Patterson Measurements Intervals [place] Rate: 110 P: 56 MS: 127 QRS: 89 QRSD: 150 T: 26 QT: 411 QTc: 557 Interpretive Statements Sinus tachycardia Atrial premature complexes in couplets Right bundle branch block Baseline wander in lead(s) II,III,aVF Compared to ECG 10/21/2019 19:21:40 Atrial premature complex(es) now present Sinus rhythm no longer present Electronically Signed On 11-15-2019 9:05:13 CDT by Kyaw Patterson [email or web address] <ELECTRONICALLY SIGNED> By: Kyaw Patterson MD, FAC 11/15/19 0905 1533 1533 Kyaw Patterson MD, FAC /EPI
--- NOTE | 2019-11-15 14:16 | EKG ---
[place] [address] ELECTROCARDIOGRAM REPORT Name: JAMESON RODRIGUEZ Room: [facility]#: [id number] Admission: 11/14/19 Attend Phys: Discharge: 11/14/19 Date of : 65 Date of Service: 11/14/19 1534 Report #: [id number] THIS REPORT FOR: //name// [facility] ED Test Date: 2019-11-14 Test Time: 15:34:27 Pat Name: JAMESON RODRIGUEZ Department: Room: Gender: Manufacturing Controller: [facility] : 1965 Requested By: Javier Lozoya Order Number: [id number] MD: Kyaw Patterson Measurements Intervals [place] Rate: 106 P: 57 MN: 128 QRS: 83 QRSD: 151 T: 30 QT: 415 QTc: 552 Interpretive Statements Sinus tachycardia Right bundle branch block Compared to ECG 11/14/2019 15:33:01 Atrial premature complex(es) no longer present Electronically Signed On 11-15-2019 14:15:13 CDT by Kyaw Patterson [email or web address] <ELECTRONICALLY SIGNED> By: Kyaw Patterson MD, [facility] 11/15/19 1415 1534 1534 Kyaw Patterson MD, [facility] /EPI
== END 2019-11-14 18:59 | disposition home or self-care (01) ==
LOC: M.ERS 15:29
PROVIDERS: Emergency Medicine
DX: R07.89 Other chest pain (principal); I10 Essential (primary) hypertension; E78.00 Pure hypercholesterolemia, unspecified; K21.9 Gastro-esophageal reflux disease without esophagitis; F41.9 Anxiety disorder, unspecified; F32.9 Major depressive disorder, single episode, unspecified; Z91.018 Allergy to other foods; Z91.048 Other nonmedicinal substance allergy status

== ENCOUNTER 2020-02-15 16:46 | Emergency (ER) | payer OTHER ==
[~2020-02-15] VITALS: Ht 172.7 cm; Wt 81.7 kg
[2020-02-15 17:07] LABS: ABSOLUTE EOSINOPHILS 0.1 thou/uL (0.0-0.7); ABSOLUTE LYMPHOCYTES 2.2 thou/uL (0.8-5.3); ABSOLUTE MONOCYTES 0.6 thou/uL (0.0-1.2); ABSOLUTE NEUTROPHILS 7.2 thou/uL (1.6-8.1); BASOPHILS 0.4 %; EOSINOPHILS 0.6 %; HEMATOCRIT 43.7 % (42.0-52.0); HEMOGLOBIN 14.9 gm/dL (14.0-18.0); LYMPHOCYTES 21.7 %; MCH 30.4 pg (26.0-34.0); MCV 89.3 fL (80.0-100.0); MONOCYTES 6.2 %; MPV 9.4 fl. (7.2-11.1); NUCLEATED RBCS 0 /100WBC; PLATELET COUNT* 300 thou/uL (150-400); POLYS 71.1 %; RDW-CV 15.7 % (10.5-14.5); WBC 10.1 thou/uL (4.0-11.0)
[2020-02-15 17:17] LABS: CREATININE 1.2 mg/dL (0.6-1.3); POTASSIUM 3.2 mmol/L (3.5-5.1)
[2020-02-15 17:19] LABS: APTT 25.7 Seconds (25.0-31.3); PROTIME 10.4 Seconds (9.20-11.50)
[2020-02-15 17:31] LABS: ALBUMIN 4.3 g/dL (3.4-5.0); CK-MB MASS 0.5 ng/mL (<0.5-3.6); MAGNESIUM 1.9 mg/dL (1.8-2.4); TOTAL BILIRUBIN 0.9 mg/dL (<0.1-1.0); TOTAL PROTEIN 8.5 g/dL (6.4-8.2)
[2020-02-15 17:45] VITALS: BP 135/98
--- NOTE | 2020-02-16 10:34 | EKG ---
[place] [address] ELECTROCARDIOGRAM REPORT Name: MICHAELJAMESON MORELIA Room: [facility]#: [id number] Admission: 02/15/20 Attend Phys: Discharge: 02/15/20 Date of : 65 Date of Service: 02/15/20 1650 Report #: [id number] THIS REPORT FOR: //name// [facility] ED Test Date: 2020-02-15 Test Time: 16:50:38 Pat Name: JAMESON RODRIGUEZ Department: Room: Gender: Paginator: : 1965 Requested By: Orville Erwin Order Number: [id number] MD: Denis Fong Measurements Intervals [place] Rate: 106 P: 51 TN: 126 QRS: -87 QRSD: 154 T: 14 QT: 391 QTc: 520 Interpretive Statements Sinus tachycardia Atrial premature complexes RBBB and LAFB Compared to ECG 11/14/2019 15:34:27 Atrial premature complex(es) now present Electronically Signed On 02-16-2020 10:34:40 CDT by Denis Fong [email or web address] <ELECTRONICALLY SIGNED> By: Denis Fong MD, [facility] 02/16/20 1034 1650 1650 Denis Fong MD, [facility] /EPI
== END 2020-02-15 17:46 | disposition home or self-care (01) ==
LOC: M.ERS 16:46
PROVIDERS: Family Medicine
DX: R07.89 Other chest pain (principal); I10 Essential (primary) hypertension; K21.9 Gastro-esophageal reflux disease without esophagitis; E78.00 Pure hypercholesterolemia, unspecified; Z88.8 Allergy status to other drugs, medicaments and biological substances; Z79.899 Other long term (current) drug therapy

== ENCOUNTER 2020-07-19 20:44 | Emergency (ER) | payer OTHER ==
[~2020-07-19] VITALS: Ht 172.7 cm; Wt 77.1 kg
[2020-07-19 21:46] LABS: CALCIUM 9.3 mg/dL (8.5-10.1); CREATININE 1.1 mg/dL (0.6-1.3); POTASSIUM 3.1 mmol/L (3.5-5.1)
[2020-07-19 21:50] LABS: ABSOLUTE BASOPHILS 0.1 thou/uL (0.0-0.2); ABSOLUTE EOSINOPHILS 0.2 thou/uL (0.0-0.7); ABSOLUTE LYMPHOCYTES 1.7 thou/uL (0.8-5.3); ABSOLUTE MONOCYTES 0.5 thou/uL (0.0-1.2); ALBUMIN 4.2 g/dL (3.4-5.0); BASOPHILS 1.1 %; EOSINOPHILS 3.8 %; HEMATOCRIT 33.5 % (42.0-52.0); HEMOGLOBIN 10.6 gm/dL (14.0-18.0); LYMPHOCYTES 30.9 %; MCH 26.4 pg (26.0-34.0); MCHC 31.5 g/dL (28.0-37.0); MCV 83.6 fL (80.0-100.0); MONOCYTES 9.7 %; MPV 9.8 fl. (7.2-11.1); NUCLEATED RBCS 0 /100WBC; PLATELET COUNT* 257 thou/uL (150-400); POLYS 54.5 %; RDW-CV 16.3 % (10.5-14.5); TOTAL BILIRUBIN 0.3 mg/dL (<0.1-1.0); WBC 5.5 thou/uL (4.0-11.0)
[2020-07-19 22:08] VITALS: BP 135/86
--- NOTE | 2020-07-22 13:41 | EKG ---
[place] [address] ELECTROCARDIOGRAM REPORT Name: MICHAELJAMESON THIBODEAUX Room: [facility]#: [id number] Admission: 07/19/20 Attend Phys: Discharge: 07/19/20 Date of : 65 Date of Service: 07/19/202047 Report #: [id number] THIS REPORT FOR: //name// [facility] ED Test Date: 2020-07-19 Test Time: 20:48:26 Pat Name: JAMESON RODRIGUEZ Department: Room: Gender: Bander Hand: DEE DEE : 1965 Requested By: Cherie Elam Order Number: [id number] MD: Denis Fong Measurements Intervals [place] Rate: 90 P: 33 OR: 139 QRS: -36 QRSD: 153 T: 23 QT: 417 QTc: 511 Interpretive Statements Sinus rhythm Right bundle branch block Compared to ECG 02/15/2020 16:50:38 Sinus tachycardia no longer present Atrial premature complex(es) no longer present Left anterior fascicular block no longer present Electronically Signed On 07-22-2020 13:41:44 EDGING SUPERVISOR by Denis Fong [email or web address] <ELECTRONICALLY SIGNED> By: Denis Fong MD, [facility] 07/22/20 1341 47 47 Denis Fong MD, [facility] /EPI
== END 2020-07-19 22:09 | disposition home or self-care (01) ==
LOC: M.ERS 20:44
PROVIDERS: Personal Emergency Response Attendant
DX: F41.9 Anxiety disorder, unspecified (principal); G89.29 Other chronic pain; I10 Essential (primary) hypertension; K21.9 Gastro-esophageal reflux disease without esophagitis; E78.00 Pure hypercholesterolemia, unspecified; F32.9 Major depressive disorder, single episode, unspecified; Z91.018 Allergy to other foods; Z88.8 Allergy status to other drugs, medicaments and biological substances